=== PATIENT | female | born 1960 | race Caucasian/White ===

== ENCOUNTER 2020-07-16 06:31 | Day surgery (SDC) | payer OTHER, BC ==
[2020-07-09 13:39] LABS: CLARITY,URINE CLEAR (Clear); COLOR,URINE YELLOW (Yellow); GLUCOSE, URINE NEGATIVE (Neg); KETONES,URINE NEGATIVE (Neg); LEUKOCYTE ESTERASE ,URINE NEGATIVE (Neg); NITRITES, URINE NEGATIVE (Neg); OCCULT BLOOD,URINE NEGATIVE (Neg); PH,URINE 5.5 (4.8-8.0); PROTEIN,URINE NEGATIVE (Neg); UROBILINOGEN,URINE 0.2 E.U/dL (0.2-1.0)
[2020-07-09 13:42] LABS: BASOPHILS # (AUTO) 0.1 X10'3 (0-0.2); BASOPHILS % (AUTO) 1.1 % (0-1); EOSINOPHILS % (AUTO) 12.3 % (0-6); LYMPHOCYTES # (AUTO) 2.2 X10'3 (1.1-4.8); LYMPHOCYTES % (AUTO) 27.8 % (21-51); MEAN CORPUSCULAR HEMOGLOBIN 31.8 PG (27.0-31.0); MEAN CORPUSCULAR HGB CONC 33.4 g/dL (33.0-36.5); MEAN CORPUSCULAR VOLUME 95.3 FL (78-98); MEAN PLATELET VOLUME 8.2 FL (7.4-10.4); MONOCYTES # (AUTO) 0.6 X10'3 (0-0.9); NEUTROPHILS % (AUTO) 50.8 % (42-75); PRE OP HEMATOCRIT 46.4 % (35.0-45.0); PRE OP HEMOGLOBIN 15.5 g/dL (12.0-16.0); PRE OP PLATELET COUNT 290 X10'3 (140-440); RED BLOOD COUNT 4.87 X10'6 (4.20-5.60)
[2020-07-09 13:53] LABS: ALKALINE PHOSPHATASE 123 IU/L (46-116); BLOOD UREA NITROGEN 7 MG/DL (7-18); BUN/CREATININE RATIO 7.1 (6.6-38.0); CALCIUM 9.1 MG/DL (8.5-10.1); CHLORIDE 103 MMOL/L (99-107); CREATININE 0.99 MG/DL (0.40-0.90); PRE OP ALT 53 U/L (30-65); PRE OP ANION GAP 10 (8-16); PRE OP AST 40 U/L (10-37); PRE OP BILIRUB, TOTAL 0.5 MG/DL (0.0-1.0); PRE OP GLUCOSE 100 MG/DL (70-104); PRE OP POTASSIUM 3.9 MMOL/L (3.4-5.1); PRE OP SODIUM 142 MMOL/L (135-145); TOTAL CARBON DIOXIDE 29.3 MMOL/L (24-32); TOTAL PROTEIN 7.9 G/DL (6.4-8.2); eGFR 58 ML/MIN
[2020-07-09 13:57] LABS: UA COLLECTION TYPE NON-SPECIFIED
[~2020-07-16] VITALS: Ht 157.5 cm; Wt 93.7 kg
[2020-07-16] VITALS (14 sets, daily range): BP systolic 101–176; BP diastolic 62–115
[~2020-07-16 06:31] MED LIST: ALBU17AE26 INH; FLUT12AE4 INH; IXEK80AU2; LEVO175T7 PO; PARO40TA4 PO; ceFAZolin 2gm in dextrose, iso 50 ML IV ONE; famotidine 20mg tablet PO ONE; ringers solution, lacted 1,000 ML IV SCH; vancomycin 1,500 MG in NS 300ml IV soln IV ONE
[2020-07-16] MEDS ORDERED: bacitracin 15gm ointment TP ONE (09:03)
[2020-07-16] MEDS ORDERED: sevoflurane 250ml liquid IH ONE (09:09)
[2020-07-16] MEDS ORDERED: midazolam 2 mg/2 ml injection ONE (09:15)
[2020-07-16] MEDS ORDERED: fentaNYL /PF 50mcg/ml 5ml ampule ONE (09:54)
[2020-07-16] MEDS ORDERED: propofol inj 20 ML IV ONE (10:04)
[2020-07-16] MEDS ORDERED: ROPIVAcaine 0.5% (5mg/ml) 30ml vial ONE (10:04)
[2020-07-16] MEDS ORDERED: LIDOcaine 2% (20mg/ml) 5ml vial ONE (10:04)
[2020-07-16] MEDS ORDERED: dexamethasone sod phosphate 4mg/ml inj. ONE (10:19)
[2020-07-16] MEDS ORDERED: rocuronium 10mg/ml inj IV ONE (10:19)
[2020-07-16] MEDS ORDERED: ondansetron/PF 4mg/2ml inj ONE (10:19)
[2020-07-16] MEDS ORDERED: mineral oil 10ml sterile, topical TP ONE (10:23)
[2020-07-16] MEDS ORDERED: acetaminophen 1,000mg/100ml IV 100 ML IV PRN (10:30)
[2020-07-16] MEDS ORDERED: hydrALAZINE 20mg/ml inj. IV PRN (10:30)
[2020-07-16] MEDS ORDERED: meperidine/PF 25mg/ml syringe IV PRN (10:30)
[2020-07-16] MEDS ORDERED: labetalol 20mg/4ml (5mg/ml) syringe IV PRN (10:30)
[2020-07-16] MEDS ORDERED: morphine 4 MG/ML inj SYRINge IV PRN (10:30)
[2020-07-16] MEDS ORDERED: morphine 2 MG/ML inj. syringe IV PRN (10:30)
[2020-07-16] MEDS ORDERED: HYDROmorphone/PF 0.2 MG/ML SYRINGE IV PRN ×2 (10:30)
[2020-07-16] MEDS ORDERED: proCHLORperazine 10 MG/2 ml inj IV PRN (10:30)
[2020-07-16] MEDS ORDERED: ringers solution, lacted 1,000 ML IV SCH (10:30)
[2020-07-16] MEDS ORDERED: ondansetron/PF 4mg/2ml inj IV PRN (10:30)
[2020-07-16] MEDS ORDERED: ROPIVAcaine 0.2%/PF PUMP/bolus 550 ML POPLITEAL SCH (10:35)
[2020-07-16] MEDS ORDERED: ROPIVAcaine 0.2% (10 MG/5 ML) BOLUS INJECTION POPLITEAL PRN (10:35)
[2020-07-16] MEDS ORDERED: 0.9 % SODIUM CHLORIDE 10 ML VIAL ONE (12:36)
[2020-07-16] MEDS ORDERED: morphine 10mg/ml inj. ONE ×2 (12:36→14:14)
[2020-07-16] MEDS ORDERED: ceFAZolin 1000mg inj ONE (12:36)
[2020-07-16] MEDS ORDERED: glycopyrrolate 0.2mg/ml inj ONE (14:14)
[2020-07-16] MEDS ORDERED: neostigmine methylsulfate 1 MG/ML 10ml vial ONE (14:14)
[2020-07-16] MEDS ORDERED: acetaminophen 1,000mg/100ml IV 100 ML IV ONE (14:19)
[2020-07-16] MEDS ORDERED: albuterol 60 PUFF/8GM Inhaler IH ONE (14:31)
--- NOTE | 2020-07-16 14:36 | NUR ---
Received from OR via JOHN , accompanied by Anesthesiologist SHENG and report given by Anesthesiolgist. PATIENT WITH 20G PIV IN LEFT UR RUNNING LR AT 100. VSS, 10L MASK ON WITH 95% SATURATIONS. RIGHT LE WITH SPLINT IN PLACE. + CAP REFILL TO TOES AND ARE ALL PWD. Addendum: 07/16/20 at 1448 by Fred Baird RN, RN Amended: Links added.
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
== END 2020-07-16 16:26 | disposition home or self-care (01) ==
LOC: PAS 06:31
PROVIDERS: ATTEND Podiatrist Foot & Ankle Surgery
DX: S82.871K Displaced pilon fracture of right tibia, subsequent encounter for closed fracture with nonunion (principal); M19.071 Primary osteoarthritis, right ankle and foot; J44.9 Chronic obstructive pulmonary disease, unspecified; G47.33 Obstructive sleep apnea (adult) (pediatric); G89.18 Other acute postprocedural pain; E66.9 Obesity, unspecified; Z90.710 Acquired absence of both cervix and uterus; Z90.49 Acquired absence of other specified parts of digestive tract; Z87.442 Personal history of urinary calculi; Z72.89 Other problems related to lifestyle; Z85.3 Personal history of malignant neoplasm of breast; Z86.010 Personal history of colon polyps; Z79.899 Other long term (current) drug therapy; X58.XXXD Exposure to other specified factors, subsequent encounter
CPT/HCPCS: 20680; 27702; 36415; 64446; 73600; 76000; 76937; 80053; 81003; 82948; 85025; 87081; 87635; 93005; A6223; C1713; C1776; J0131; J0690; J1100; J2001; J2250; J2270; J2405; J2704; J2710; J2795; J3010; J3370; J7040; J7120; A4618; A6253; A6449; A7000; J3490

== ENCOUNTER → 2022-01-20 | Day surgery (SDC) | payer OTHER, BC ==
[2022-01-18 12:54] LABS: BASOPHILS % (AUTO) 0.7 % (0-1); EOSINOPHILS # (AUTO) 0.4 X10'3 (0-0.9); EOSINOPHILS % (AUTO) 7.8 % (0-6); LYMPHOCYTES # (AUTO) 1.7 X10'3 (1.1-4.8); LYMPHOCYTES % (AUTO) 31.2 % (21-51); MEAN CORPUSCULAR HEMOGLOBIN 32.4 PG (27.0-31.0); MEAN CORPUSCULAR HGB CONC 33.3 g/dL (33.0-36.5); MEAN CORPUSCULAR VOLUME 97.3 FL (78-98); MEAN PLATELET VOLUME 8.3 FL (7.4-10.4); MONOCYTES # (AUTO) 0.5 X10'3 (0-0.9); MONOCYTES % (AUTO) 9.2 % (2-12); NEUTROPHILS # (AUTO) 2.8 X10'3 (1.8-7.7); NEUTROPHILS % (AUTO) 51.1 % (42-75); PRE OP HEMOGLOBIN 13.7 g/dL (12.0-16.0); PRE OP PLATELET COUNT 264 X10'3 (140-440); RED BLOOD COUNT 4.22 X10'6 (4.20-5.60); RED CELL DISTRIBUTION WIDTH 13.2 % (11.5-14.5)
[2022-01-18 13:12] LABS: ALBUMIN 3.7 G/DL (3.4-5.0); ALKALINE PHOSPHATASE 108 IU/L (46-116); BLOOD UREA NITROGEN 8 MG/DL (7-18); BUN/CREATININE RATIO 7.5 (6.6-38.0); CHLORIDE 101 MMOL/L (99-107); CREATININE 1.07 MG/DL (0.40-0.90); PRE OP ALT 35 U/L (30-65); PRE OP ANION GAP 7 (8-16); PRE OP AST 17 U/L (10-37); PRE OP BILIRUB, TOTAL 0.5 MG/DL (0.0-1.0); PRE OP GLUCOSE 100 MG/DL (70-104); PRE OP SODIUM 139 MMOL/L (135-145); TOTAL CARBON DIOXIDE 30.9 MMOL/L (24-32); TOTAL PROTEIN 7.4 G/DL (6.4-8.2); eGFR 52 ML/MIN
[2022-01-20] VITALS (13 sets, daily range): BP systolic 106–150; BP diastolic 53–127
[~2022-01-20] VITALS: Ht 165.1 cm; Wt 100.8 kg
[~2022-01-20] MED LIST changes: -FLUT12AE4 INH; +HYDROmorphone/PF 0.2 MG/ML SYRINGE IV PRN; -IXEK80AU2; +LIDOcaine 1% (10mg/ml)w/preservative inj. 20ml MDV ONE; +ROPIVAcaine 0.2% (10 MG/5 ML) BOLUS INJECTION POPLITEAL PRN; +ROPIVAcaine 0.2%/PF PUMP/bolus 545 ML POPLITEAL SCH; +ROPIVAcaine 0.5% (5mg/ml) 30ml vial ONE; +USTE90DI SUBCUT; +acetaminophen 1,000mg/100ml IV 100 ML IV PRN; +albuterol 2.5 MG/3 ML nebule NEB ONE; +albuterol 60 PUFF/8GM Inhaler IH ONE; -ceFAZolin 2gm in dextrose, iso 50 ML IV ONE; +ceFAZolin inj. 2,000 MG in dextrose 5%-water 100 ML IV ONE; +dexamethasone sod phosphate 4mg/ml inj. ONE; +fentaNYL /PF 50mcg/ml 5ml ampule ONE; +hydrALAZINE 20mg/ml inj. IV ONE; +hydrALAZINE 20mg/ml inj. IV PRN; +labetalol 20mg/4ml (5mg/ml) syringe IV ONE; +labetalol 20mg/4ml (5mg/ml) syringe IV PRN; +meperidine/PF 25mg/ml syringe IV PRN; +midazolam 1 mg/ML 2ml injection ONE; +morphine 2 MG/ML inj. syringe IV PRN; +morphine 4 MG/ML inj SYRINge IV PRN; +ondansetron/PF 4mg/2ml inj IV PRN; +ondansetron/PF 4mg/2ml inj ONE; +proCHLORperazine 10 MG/2 ml inj IV PRN; +propofol inj 20 ML IV ONE; +sevoflurane 250ml liquid IH ONE; -vancomycin 1,500 MG in NS 300ml IV soln IV ONE
[2022-01-20 08:08] LABS: UA COLLECTION TYPE CLN CATCH MIDSTREAM
[2022-01-20 08:13] LABS: CLARITY,URINE CLEAR (Clear); COLOR,URINE YELLOW (Yellow); GLUCOSE, URINE NEGATIVE (Neg); KETONES,URINE NEGATIVE (Neg); LEUKOCYTE ESTERASE ,URINE NEGATIVE (Neg); NITRITES, URINE NEGATIVE (Neg); OCCULT BLOOD,URINE NEGATIVE (Neg); PROTEIN,URINE NEGATIVE (Neg); UROBILINOGEN,URINE 0.2 E.U/dL (0.2-1.0)
--- NOTE | 2022-01-20 09:40 | NUR ---
OR NURSE PRESENT. FLUSHED LINE. GOOD FLOW NO RESISTANCE. OR NURSE WITNESSED
--- NOTE | 2022-01-20 11:34 | NUR ---
Received from OR via JOHN , accompanied by Anesthesiologist SHENG and report given by Anesthesiolgist. PATIENT WITH 20G PIV IN LEFT HAND RUNNING LR AT 100. SNORING HEAVILY BUT MAINTAINING SATURATIONS. SPLINT TO LEFT HANDKLE THAT IS CDI. TOES EXPOSTED HAVE + CAP REFILL AND ARE PWD. Addendum: 01/20/22 at 1141 by Fred Baird RN, RN Amended: Links added.
--- NOTE | 2022-01-20 13:34 | NUR ---
ALL DISCHARGE CRITERIA HAS BEEN MET. VSS, PAIN AT A TOLERABLE LEVEL, VOIDING AND ABLE TO SAFELY AMBULATE AND TRANSFER SELF. IV TAKEN OUT WITHOUT ANY COMPLICATIONS. ALL DISCHARGE INSTRUCTIONS COVERED WITH PATIENT AND ALL QUESTIONS ANSWERED. PATIENT TAKEN OUT VIA WHEELCHAIR TO PERSONAL VEHICLE WHERE FAMILY/FRIEND DROVE PATIENT HOME. DISCUSSED ALL DC MEDS AND INSTRUCTIONS WITH SPOUSE. ALL QUESTIONS ANSWERED AND PATIENT TAKEN HOME. Addendum: 01/20/22 at 1444 by Fred Baird RN, RN Amended: Links added.
== END | disposition home or self-care (01) ==
LOC: PAS 07:08
PROVIDERS: ATTEND Podiatrist Foot & Ankle Surgery
DX: S82.832A Other fracture of upper and lower end of left fibula, initial encounter for closed fracture (principal); S93.422A Sprain of deltoid ligament of left ankle, initial encounter; S93.432A Sprain of tibiofibular ligament of left ankle, initial encounter; F41.9 Anxiety disorder, unspecified; G47.33 Obstructive sleep apnea (adult) (pediatric); G43.909 Migraine, unspecified, not intractable, without status migrainosus; J44.9 Chronic obstructive pulmonary disease, unspecified; E66.9 Obesity, unspecified; Z68.37 Body mass index [BMI] 37.0-37.9, adult; G89.18 Other acute postprocedural pain; M19.071 Primary osteoarthritis, right ankle and foot; Z90.710 Acquired absence of both cervix and uterus; Z79.82 Long term (current) use of aspirin; Z90.49 Acquired absence of other specified parts of digestive tract; Z98.890 Other specified postprocedural states; Z85.3 Personal history of malignant neoplasm of breast; Z72.89 Other problems related to lifestyle; Z87.442 Personal history of urinary calculi; X58.XXXA Exposure to other specified factors, initial encounter; Y93.89 Activity, other specified; Y92.89 Other specified places as the place of occurrence of the external cause; Y99.8 Other external cause status
CPT/HCPCS: 27695; 27792; 27829; 36415; 64446; 64447; 73600; 76000; 76942; 80053; 81003; 82948; 85025; 93005; 94640; 94760; A6223; C1713; J0360; J0690; J1100; J2250; J2405; J2704; J2795; J3010; J3490; J7030; J7060; J7120; Z7506; Z7508; Z7512; A4618; A6253; A6449; A7000

== ENCOUNTER 2025-04-29 07:33 | Day surgery (SDC) | payer OTHER, BC ==
[2025-04-23 15:39] LABS: MEAN PLATELET VOLUME 8.1 FL (7.4-10.4); PRE OP HEMATOCRIT 43.0 % (35.0-45.0); PRE OP HEMOGLOBIN 14.7 g/dL (12.0-16.0); PRE OP PLATELET COUNT 222 X10'3 (140-440); PRE OP WHITE BLOOD COUNT 7.4 10'3 (4.8-10.8); RED CELL DISTRIBUTION WIDTH 13.3 % (11.5-14.5)
--- NOTE | 2025-04-23 15:41 | ELECTROCARDIOGRAPH REPORT ---
[facility] Test Date: 2025-04-23 Test Time: 15:39:26 Pat Name: DIA LEWIS Department: [facility]-PRE-OP Patient ID: [id number] Room: Gender: F Trimmer Hand: TOM : 1960 Requested By: ROCÍO REYES Order Number: [id number] Reading MD: Dr. JESSIKA Horvath Measurements Intervals [place] Rate: 59 P: 65 MI: 174 QRS: 4 QRSD: 106 T: 83 QT: 427 QTc: 423 Interpretive Statements Sinus bradycardia Abnormal R-wave progression, early transition Electronically Signed On 04-24-2025 16:27:[address] JESSIKA Horvath Please click the below link to view image of tracing.
[2025-04-23 15:54] LABS: APTT 27 SECONDS (22-32); INR 1.0 INR
[2025-04-23 16:03] LABS: CREATININE 0.92 MG/DL (0.40-0.90); PRE OP ALT 34 U/L (30-65); PRE OP ANION GAP 6 (8-16); PRE OP AST 19 U/L (10-37); PRE OP BILIRUB, TOTAL 0.5 MG/DL (0.0-1.0); PRE OP GLUCOSE 119 MG/DL (70-104); PRE OP POTASSIUM 3.7 MMOL/L (3.4-5.1); PRE OP SODIUM 141 MMOL/L (135-145); TOTAL CARBON DIOXIDE 29.7 MMOL/L (24-32); eGFR 62 ML/MIN
[~2025-04-29] VITALS: Ht 162.6 cm; Wt 94.3 kg
[2025-04-29] VITALS (18 sets, daily range): BP systolic 120–191; BP diastolic 80–115; PULSE 53–66; RESP 10–18; TEMP 97.5; O2SAT 90–98
[2025-04-29] MEDS: ceFAZolin 2gm/dext,iso 50mL 50 ML IV ONE (05:30)
[~2025-04-29 07:33] MED LIST changes: -ALBU17AE26 INH; +ALBU8HFA INH; +ARIP10TA87 PO; +ESCI20TA39 PO; +FLUT1BLS11 INH; +GABA300C PO; -HYDROmorphone/PF 0.2 MG/ML SYRINGE IV PRN; -LIDOcaine 1% (10mg/ml)w/preservative inj. 20ml MDV ONE; -PARO40TA4 PO; +RISA150P SQ; -ROPIVAcaine 0.2% (10 MG/5 ML) BOLUS INJECTION POPLITEAL PRN; -ROPIVAcaine 0.2%/PF PUMP/bolus 545 ML POPLITEAL SCH; -ROPIVAcaine 0.5% (5mg/ml) 30ml vial ONE; -USTE90DI SUBCUT; -acetaminophen 1,000mg/100ml IV 100 ML IV PRN; -albuterol 2.5 MG/3 ML nebule NEB ONE; -albuterol 60 PUFF/8GM Inhaler IH ONE; -ceFAZolin inj. 2,000 MG in dextrose 5%-water 100 ML IV ONE; -dexamethasone sod phosphate 4mg/ml inj. ONE; -famotidine 20mg tablet PO ONE; -fentaNYL /PF 50mcg/ml 5ml ampule ONE; -hydrALAZINE 20mg/ml inj. IV ONE; -hydrALAZINE 20mg/ml inj. IV PRN; -labetalol 20mg/4ml (5mg/ml) syringe IV ONE; -labetalol 20mg/4ml (5mg/ml) syringe IV PRN; -meperidine/PF 25mg/ml syringe IV PRN; -midazolam 1 mg/ML 2ml injection ONE; -morphine 2 MG/ML inj. syringe IV PRN; -morphine 4 MG/ML inj SYRINge IV PRN; -ondansetron/PF 4mg/2ml inj IV PRN; -ondansetron/PF 4mg/2ml inj ONE; -proCHLORperazine 10 MG/2 ml inj IV PRN; -propofol inj 20 ML IV ONE; -ringers solution, lacted 1,000 ML IV SCH; -sevoflurane 250ml liquid IH ONE
[2025-04-29] MEDS: ringers solution, lacted 1,000 ML IV SCH (08:07)
[2025-04-29] MEDS ORDERED: LIDOcaine 1% 30ml preserv. free vial ONE (09:27)
[2025-04-29] MEDS ORDERED: BUPIVAcaine 2.5mg/ml inj 50ml vial (contains preservative) ONE (09:28)
[2025-04-29] MEDS ORDERED: BUPIVACAINE liposomal/PF 13.3 MG/ML 10mL vial IM ONE (09:28)
[2025-04-29] MEDS ORDERED: midazolam 1 mg/ML 2ml injection ONE (10:01)
[2025-04-29] MEDS ORDERED: fentaNYL /PF 50mcg/ml 5ml ampule ONE (10:20)
[2025-04-29] MEDS ORDERED: LIDOcaine 2% (20mg/ml) 5ml vial ONE (10:21)
[2025-04-29] MEDS ORDERED: propofol inj 20 ML IV ONE ×2 (10:21→11:07)
[2025-04-29] MEDS ORDERED: ondansetron/PF 4mg/2ml inj ONE (10:21)
[2025-04-29] MEDS ORDERED: dexamethasone sod phosphate 4mg/ml inj. ONE (10:21)
[2025-04-29] MEDS: BUPIVAcaine/PF 2.5 mg/ml (0.25%) 30ml vial IJ ONE (10:27)
[2025-04-29] MEDS: LIDOcaine 1% 30ml preserv. free vial IJ ONE (10:27)
[2025-04-29] MEDS: BUPIVACAINE liposomal/PF 13.3 MG/ML 10mL vial IM ONE (10:28)
[2025-04-29] MEDS ORDERED: ipratropium/albuterol 3ml nebule IH ONE (11:35)
[2025-04-29] MEDS ORDERED: ondansetron/PF 4mg/2ml inj IV PRN (11:35)
[2025-04-29] MEDS ORDERED: ringers solution, lacted 1,000 ML IV SCH (11:35)
[2025-04-29] MEDS ORDERED: hydrALAZINE 20mg/ml inj. IV PRN (11:35)
[2025-04-29] MEDS ORDERED: labetalol 5mg/ml 20ml inj. IV PRN (11:35)
[2025-04-29] MEDS ORDERED: morphine 4 MG/ML inj SYRINge IV PRN ×2 (11:35)
[2025-04-29] MEDS ORDERED: HYDROmorphone/PF 0.2 MG/ML SYRINGE IV PRN ×2 (11:35)
--- NOTE | 2025-04-29 11:37 | OPERATIVE REPORT ---
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 Left breast wire localized lumpectomy 2. Reading of specimen radiograph Surgeon: Dr. Rocío Reyes Tugboat Dispatcher Amilcar Ely PA-C Anesthesiologist: Dahlia Cantu Type of Anesthesia: General Findings: Tracker and clip seen and identified on specimen radiograph in two views Complications None Prosthetics\Implants used: None Estimated Blood Loss: Less than 5 mL Specimen Removed: 1. Left breast wire (melissa building supervisor) localized lumpectomy, suture marked short superior, long lateral, double deep 2. Left breast lateral margin suture mims final margin Description of Procedure: Tammy is a 64-year-old female who was diagnosed with ductal carcinoma in Situ. She was seen and evaluated in the office. We discussed her surgical options and decided to move forward with breast conservation. She had the MELISSA building supervisor marker placed prior to surgery in preparation for surgery. Informed consent was obtained. She was seen in the preoperative holding area by myself and the anesthesiologist. The left breast was marked with my initials. She had an IV placed, SCDs, IV antibiotics ending at the bedside which was administered prior to the incision. She was taken to the OR suite and placed on the table in supine position with the arms extended. General anesthesia was performed with an LMA by the anesthesiologist. The left breast was scanned with the MELISSA building supervisor probe and the skin was marked at 6:00 at the areolar edge. A time-out was performed and agreed upon. A periareolar region incision was made with a 15 blade after the administration of 1% lidocaine plain. The incision was further extended with the cutting on the cautery through the deep dermal layer. German retractors were placed in the cavity and I dissected under the skin flaps. The MELISSA building supervisor probe was used as a guide for the dissection. I scanned the cavity and detected the shortness distance of 9-10 mm. I dissected the tissue in the circumferential fashion and then posteriorly. Specimen was removed from the c avity and oriented with short stitch superior, long suture lateral, double suture deep and secured to the specimen radiograph board. The image was taken in two views. The tracker and the clip were noted in the specimen almost centrally but slightly laterally. I decided to take an additional lateral margin. The lateral margin was excised and the new margin was marked with a marking stitch. Both specimens were placed in formalin off the field. The cavity was copiously irrigated and hemostasis was achieved with Bovie electrocautery. The cavity was undermined and re-approximated with 3-0 ajith Vicryl suture. The skin was closed with 3-0 Vicryl interrupted and a 4-0 Monocryl running subcuticular stitch. 0.25% Marcaine mixed with Exparel was injected at the site. The skin was cleaned and the Prineo Dermabond mesh was placed over the incision. Fluffs and a pressure dressing were placed as a top dressing. All needle and sponge counts were correct and patient was taken to recovery in stable condition without complication. Counts repoted as correct: Yes ROCÍO REYES DO Apr 29, 2025 11:37
[2025-04-29] MEDS: acetaminophen 1,000mg/100ml IV 100 ML IV PRN (12:05)
[2025-04-29] MEDS: albuterol 2.5 MG/3 ML nebule NEB ONE (12:09)
== END 2025-04-29 13:52 | disposition home or self-care (01) ==
LOC: PAS 07:33
PROVIDERS: ATTEND Surgery
DX: D05.12 Intraductal carcinoma in situ of left breast (principal); J45.909 Unspecified asthma, uncomplicated; E66.9 Obesity, unspecified; G47.33 Obstructive sleep apnea (adult) (pediatric); E89.0 Postprocedural hypothyroidism; F41.9 Anxiety disorder, unspecified; F32.A Depression, unspecified; M19.90 Unspecified osteoarthritis, unspecified site; Z79.890 Hormone replacement therapy; Z79.899 Other long term (current) drug therapy; Z90.49 Acquired absence of other specified parts of digestive tract; Z90.710 Acquired absence of both cervix and uterus; Z68.35 Body mass index [BMI] 35.0-35.9, adult
CPT/HCPCS: 19301; 36415; 76098; 80053; 82948; 85025; 85610; 85730; 93005; 94640; J0131; J0666; J1100; J2003; J2250; J2405; J2704; J3010; J3490; J7030; J7120; Z7506; Z7508; Z7512; A4215; A4615; A4618; A6258; A6449; A7000